=== PATIENT | female | born 1990 | race Caucasian/White ===

== ENCOUNTER 2017-11-09 05:37 | Emergency (ER) | payer MEDICAID ==
[~2017-11-09] VITALS: Ht 157.5 cm; Wt 48.7 kg
[~2017-11-09 05:37] MED LIST: CLIN150 PO; Docusate Sod/Senna PO; IBUP600 PO; IBUP800T23 PO; PRENCAP10 PO
[2017-11-09 05:50] VITALS: BP 121/78; PULSE 90; RESP 18; TEMP 98.3; O2SAT 98
--- NOTE | 2017-11-09 06:14 | PD ---
HPI Chief Complaint: Pain: Acute or Chronic Time Seen by Provider: 06:04 Travel History International Travel<30 days: No Contact w/Intl Traveler<30days: No Traveled to known affect area: No History of Present Illness HPI Patient discussed with her plastic surgeon about her left breast pain in her surgeon voiced concern about possible rupture of her implant recommended to come to the ER for further evaluation. Per patient this has been going on for at least the past week or so with increasing pain over the last 2 days. Pain scale rated at 7 out of 10, patient denies any rash or discoloration to her skin. She does state that she has noted that her left breast appears lower than her right ALL:AMOXIL, LATEX PMHX DENIES PSHX: DENIES PFSH Past Medical History Diverticulitis: No Inguinal Hernia: No Respiratory: Yes (CHRONIC BRONCHITIS) Tetanus Vaccination: < 5 Years Influenza Vaccination: No ?: Not LMP: normally irregular : 1 Para: 1 Past Surgical History Tonsillectomy: Yes Other Surgery: Yes (breast implants) Social History Alcohol Use: No Tobacco Use: Yes (half a pack of cigarettes per day) Substance Use: No Allergies-Medications (Allergen,Severity, Reaction): Coded Allergies: latex (Unverified Allergy, Severe, Rash, 11/09/17) amoxicillin (Unverified Allergy, Unknown, 11/09/17) Reported Meds & Prescriptions Reported Meds & Active Scripts Active Review of Systems Except as stated in HPI: all other systems reviewed are Neg General / Constitutional: No: Fever Eyes: No: Visual changes HENT: No: Headaches Cardiovascular: No: Chest Pain or Discomfort Respiratory: Positive: Other (LEFT BREAST PAIN) Gastrointestinal: No: Abdominal Pain Genitourinary: No: Dysuria Musculoskeletal: No: Pain Skin: No Rash Neurologic: No: Weakness Psychiatric: No: Depression Endocrine: No: Polydipsia Hematologic/Lymphatic: No: Easy Bruising Physical Exam Narrative GENERAL: SKIN: Warm and dry. NO RASH, NO CELLULITIC CHANGES, NO STREAKING. HEAD: Atraumatic. Normocephalic. EYES: Pupils equal and round. No scleral icterus. No injection or drainage. ENT: No nasal bleeding or discharge. Mucous membranes pink and moist. NECK: Trachea midline. No JVD. CARDIOVASCULAR: Regular rate and rhythm. RESPIRATORY: No accessory muscle use. Clear to auscultation. Breath sounds equal bilaterally. GASTROINTESTINAL: Abdomen soft, non-tender, nondistended. MUSCULOSKELETAL: Extremities without clubbing, cyanosis, or edema. No obvious deformities. NEUROLOGICAL: Awake and alert. No obvious cranial nerve deficits. Motor grossly within normal limits. Five out of 5 muscle strength in the arms and legs. Normal speech. PSYCHIATRIC: Appropriate mood and affect; insight and judgment normal. Data Data Last Documented VS Vital Signs Date Time Temp Pulse Resp B/P (MAP) Pulse Ox O2 Delivery O2 Flow Rate FiO2 11/09/17 05:50 98.3 90 18 121/78 (92) [address] Thorax/ Chest Wo Iv Contras (11/09/17 06:08) Ed Urine Pregnancytest Poc (11/09/17 06:08) MDM Medical Decision Making Medical Screen Exam Complete: Yes Emergency Medical Condition: Yes Medical Record Reviewed: Yes Differential Diagnosis CELLULITIS V ABSCESS V IMPLANT RUPTURE V IMPLANT MIGRATION Narrative Course CT chest shows bilateral breast implants in place without E/O RUPTURE/CELLULITIS /ABSCESS/OR IMPLANT MIGRATION Diagnosis Primary Impression: LEFT BREAST PAIN Patient Instructions: General Instructions Additional Instructions: MAKE FOLLOW UP APPOINTMENT WITH YOUR PLASTIC SURGEON FOR FURTHER EVALUATION, A CHEST OF YOUR THORAX WAS DONE AND IT DID NOT SHOW ANY IMPLANT MIGRATION, IMPLANT RUPTURE OR ABSCESS/CELLULITIS. Scripts Tramadol (Ultram) 50 Mg Tab 50 MG PO Q6H Y for PAIN, #12 TAB 0 Refills Prov: Daniel Parker MD 11/09/17 Disposition: 01 DISCHARGE HOME Condition: Stable Daniel Parker MD Nov 09, 2017 06:14
--- NOTE | 2017-11-09 06:34 | RADRPT ---
EXAM DATE/TIME: 11/09/2017 06:21 [facility] COMPARISON: No previous studies available for comparison. INDICATIONS : Left breast pain since yesterday. Question rupture of implant. RADIATION DOSE: 6.19 CTDIvol (mGy) MEDICAL HISTORY : chrinic bronchitis SURGICAL HISTORY : Tonsillectomy. breast augmentation 10/04, lumpectomy 01/03 ENCOUNTER: Initial ACUITY: 2 days PAIN SCALE: 4/10 LOCATION: Left chest TECHNIQUE: Volumetric scanning of the chest was performed. Using automated exposure control and adjustment of t he mA and/or kV according to patient size, radiation dose was kept as low as reasonably achievable to obtain optimal diagnostic quality images. DICOM format image data is available electronically for r eview and comparison. Follow-up recommendations for detected pulmonary nodules are based at a minimum on nodule size and pa tient risk factors according to Fleischner Society Guidelines. FINDINGS: LUNGS: There is no consolidation or pneumothorax. No concerning pulmonary nodule is visualized. PLEURAE: There is no pleural thickening or pleural effusion. MEDIASTINUM: The heart and great vessels demonstrate no acute abnormality. There is no mediastinal or hilar lymph adenopathy. AXILLAE: Within normal limits. No lymphadenopathy. MUSCULOSKELETAL: Bilateral breast implants in place. Implants appear intact. MISCELLANEOUS: The visualized upper abdominal organs demonstrate no acute abnormality. CONCLUSION: 1. Bilateral breast implants in place. The implants appear intact. 2. No acute abnormality. Bijan Sargent MD on November 09, 2017 at 6:30 Board Certified Radiologist. This report was verified electronically.
[2017-11-09] MEDS ORDERED: TRAM50 PO (06:40)
[2017-11-09 06:44] VITALS: BP 120/80
== END 2017-11-09 06:58 | disposition home or self-care (01) ==
LOC: PHED 05:37
DX: N64.4 Mastodynia (principal); F17.210 Nicotine dependence, cigarettes, uncomplicated; Z88.1 Allergy status to other antibiotic agents
CPT/HCPCS: 71250; 99284